=== PATIENT | female | born 1945 | race Caucasian/White ===

== ENCOUNTER 2021-03-01 05:33 | Observation (INO) | payer MEDICARE, OTHER ==
[~2021-03-01] VITALS: Ht 162.6 cm; Wt 77.6 kg
[2021-03-01 06:16] LABS: HEMOGLOBIN 14.8 gm/dl (12.3-15.3); RED BLOOD COUNT 4.9 M/UL (4.00-5.10); WHITE BLOOD COUNT 10.8 K/UL (4.5-11.0)
[2021-03-01 06:40] LABS: BUN/CREATININE RATIO 21 (0-10)
--- NOTE | 2021-03-01 10:37 | NUR ---
critical lactic acid called at 19.7, previously 21 lactic acid is trending downward wctm
[2021-03-01] MEDS ORDERED: LASIX40 MG PO (13:09)
[2021-03-01] MEDS ORDERED: TESSALON PERLE100 MG PO (13:09)
[2021-03-01] MEDS ORDERED: METFORMIN HCL1000 MG PO (13:10)
[2021-03-01] MEDS ORDERED: ACTOS30 MG PO (13:10)
[2021-03-01] MEDS ORDERED: PRADAXA75 MG PO (13:10)
[2021-03-01] MEDS ORDERED: TORSEMIDE20 MG PO ×2 (13:11→13:12)
[2021-03-01] MEDS ORDERED: K-DUR TAB 20 M20 MEQ PO (13:12)
[2021-03-01] MEDS ORDERED: TOPROL XL 50 MG50 MG PO (13:12)
[2021-03-01] MEDS ORDERED: ASPIRIN EC81 MG PO (13:13)
[2021-03-01] MEDS ORDERED: DOXEPIN HCL25 MG PO (13:13)
[2021-03-01] MEDS ORDERED: OMEPRAZOLE20 M1 PO (13:14)
[2021-03-01] MEDS ORDERED: ZOLOFT100 MG PO (13:14)
[2021-03-01] MEDS ORDERED: GABAPENTIN600 MG PO (13:14)
[2021-03-01] MEDS ORDERED: TIKOSYN125 MCG PO (13:15)
[2021-03-01] MEDS ORDERED: NEURONTIN600 MG PO (13:15)
[2021-03-01] MEDS ORDERED: LIPITOR TAB 1010 MG PO (13:15)
[2021-03-01] MEDS ORDERED: NOVOLIN 70100 UNIT/2 SQ ×2 (13:16)
[2021-03-02 04:01] LABS: HEMOGLOBIN 13.8 gm/dl (12.3-15.3); RED BLOOD COUNT 4.66 M/UL (4.00-5.10)
[2021-03-02 04:05] LABS: WHITE BLOOD COUNT 7.7 K/UL (4.5-11.0)
== END 2021-03-03 16:39 | disposition home or self-care (01) ==
LOC: ER1 05:33 → MED SURG 4 08:11 → CDU 08:11 → MED SURG 4 08:55
PROVIDERS: Physician Assistant Medical; Student in an Organized Health Care Education/Training Program; ADMIT Internal Medicine
DX: R55 Syncope and collapse (principal); I49.5 Sick sinus syndrome; S01.81XA Laceration without foreign body of other part of head, initial encounter; I48.0 Paroxysmal atrial fibrillation; E11.9 Type 2 diabetes mellitus without complications; I10 Essential (primary) hypertension; E78.5 Hyperlipidemia, unspecified; I25.10 Atherosclerotic heart disease of native coronary artery without angina pectoris; I27.20 Pulmonary hypertension, unspecified; Z91.14 Patient's other noncompliance with medication regimen; Z95.0 Presence of cardiac pacemaker; Z85.3 Personal history of malignant neoplasm of breast; Z91.040 Latex allergy status; Z79.01 Long term (current) use of anticoagulants; Z79.82 Long term (current) use of aspirin; Z79.4 Long term (current) use of insulin; Z79.899 Other long term (current) drug therapy; Z20.822 Contact with and (suspected) exposure to COVID-19; W19.XXXA Unspecified fall, initial encounter
CPT/HCPCS: ECHO; 12011; 36415; 70450; 71045; 72125; 80053; 82550; 82553; 82962; 83036; 83605; 83735; 83874; 83880; 84484; 85025; 85027; 85610; 85730; 90471; 90715; 93005; 93306; 93880; 97161; 97165; 99285; G0378; U0002